=== PATIENT | male | born 1950 | race Two or more races ===

== ENCOUNTER 2023-12-03 07:45 | Inpatient (IN) | payer OTHER ==
[~2023-12-03] VITALS: Ht 160 cm; Wt 61.2 kg
[2023-12-03] MEDS ORDERED: SYNTHROID50 MCG PO (09:13)
[2023-12-03] MEDS ORDERED: VASOTEC20 M1 PO (09:15)
[2023-12-03 09:59] LABS: HEMOGLOBIN 17.6 g/dL (13-16.00); MEAN CELL VOLUME 88.4 fL (80.0-100.00); MEAN CORPUSCULAR HEMOGLOBIN 30.5 pg (27.00-32.0); MEAN CORPUSCULAR HGB CONC 34.4 g/dl (32.0-36.0); PLATELET COUNT 215 K/uL (150-450); RED BLOOD COUNT 5.76 M/uL (4.00-6.00)
[2023-12-03 10:03] LABS: PH,URINE 5.5 (5.0-8.0); URINE APPEARANCE Clear; URINE BILIRRUBIN Negative (NEGATIVE); URINE BLOOD Negative; URINE COLOR Yellow; URINE GLUCOSE Negative (NEGATIVE); URINE LEUKOCYTE Negative; URINE NITRATE Negative; URINE PROTEIN Negative (NEGATIVE); URINE UROBILINOGEN 0.2 E.U./dl
[2023-12-03 10:21] LABS: CALCIUM 9.7 mg/dL (8.5-10.1); CREATININE SERUM 1.22 mg/dL (0.70-1.30); GFR 58.39; POTASSIUM 4.75 mEq/L (3.5-5.1)
[2023-12-03 10:36] LABS: INR 1.02; PARTIAL THROMBOPLASTIN TIME 32.8 SECONDS (22.0-34.0); PROTHROMBIN TIME 10.7 SECONDS (9.0-11.5)
[2023-12-03 11:13] LABS: URINE BACTERIA 3.7 uL (0.0-1933); URINE EPITHELIAL CELLS 0.2 uL (0.0-38.8); URINE RBC 0.2 uL (0.0-20.8); URINE WBC 0.4 uL (0.0-23.2)
[2023-12-11 06:48] LABS: HEMATOCRIT 41.7 % (39.0-48.0); HEMOGLOBIN 14.3 g/dL (13-16.00); MEAN CELL VOLUME 86.9 fL (80.0-100.00); MEAN CORPUSCULAR HEMOGLOBIN 29.8 pg (27.00-32.0); MEAN CORPUSCULAR HGB CONC 34.3 g/dl (32.0-36.0); PLATELET COUNT 163 K/uL (150-450); RED BLOOD COUNT 4.79 M/uL (4.00-6.00); RED CELL DISTRIBUTION WIDTH 14.2 % (11.5-14.5)
[2023-12-11 07:51] LABS: CALCIUM 7.9 mg/dL (8.5-10.1); CREATININE SERUM 1.18 mg/dL (0.70-1.30); GFR 60.68; POTASSIUM 3.99 mEq/L (3.5-5.1)
== END 2023-12-11 14:58 | disposition home or self-care (01) | DRG 708 ==
LOC: O/R 12-10 05:45 → SURH 12-10 05:45 → SURG 12-10 14:14 → SURH 12-10 15:59
PROVIDERS: ADMIT Urology; ATTEND Urology
PROC: 8E0W4CZ Robotic Assisted Procedure of Trunk Region, Percutaneous Endoscopic Approach (ICD-10-PCS; 2023-12-10)
PROC: 0VT04ZZ Resection of Prostate, Percutaneous Endoscopic Approach (ICD-10-PCS; principal; 2023-12-10 09:45)
DX: C61 Malignant neoplasm of prostate (principal); Z20.822 Contact with and (suspected) exposure to COVID-19
CPT/HCPCS: 55866; S2900